=== PATIENT | male | born 2000 ===

== ENCOUNTER 2021-12-02 21:35 | Outpatient (REF) | payer BC, SELFPAY ==
[2021-12-05 12:32] LABS: Hemoglobin S Screen Negative (Negative)
== END 2021-12-02 21:36 | disposition home or self-care (01) ==
LOC: LBN 21:35
PROVIDERS: Visit Provider Physician Assistant Medical
DX: Z13.0 Encounter for screening for diseases of the blood and blood-forming organs and certain disorders involving the immune mechanism (principal)
CPT/HCPCS: 85660

== ENCOUNTER 2022-07-31 17:44 | Emergency (ER) | payer SELFPAY ==
--- NOTE | 2022-07-31 17:30 | RT.EKG_ITS ---
APPROVED REPORT Exam: Resting ECG Reason for Exam: syncope' Patient Location: E HR:83 bpm ECG Measurements Heart Rate 83 AXIS NV 174 P 7 QRSd 89 QRS 63 QT 345 T 32 QTc 404 Conclusion Sinus rhythm...normal P axis, V-rate 60- 99 ST elev, probable normal early repol pattern...ST elevation, age<55. Sinus. Normal axis. ? NV depression vs early repol. No STEMI. I have reviewed and interpreted ECG and agree with software generated interpretation.
[2022-07-31 17:44] VITALS: BP 124/41; PULSE 97; RESP 18; O2SAT 98
[2022-07-31 17:45] VITALS: RESP 18
[2022-07-31 17:53] VITALS: TEMP 37.3
--- NOTE | 2022-07-31 18:00 | DI.CT_ITS ---
Exam(s) CT THORACIC LUMBAR SPINE REC CT THORAX ABD/PEL CTA EXAM: CT THORAX ABD/PEL CTA and CT recons of the thoracic and lumbar spine CLINICAL HISTORY: syncopal episode and fall, r/o acute process. TECHNIQUE: Imaging Protocol: Axial CT angiography was performed with multi-slice acquisition and m ulti-planar and/or 3D reconstructions. CONTRAST MATERIAL: Intravenous: Omnipaque 350 contrast volume:100 mL Oral: No COMPARISON: CT CT THORACIC LUMBAR SPINE REC from 07/31/2022 FINDINGS: CHEST: Tracheobronchial tree: Patent where visualized. Pulmonary parenchyma: No consolidation or dominant measurable mass. No architectural distortion. Pulmonary Arteries: No evidence of filling defect to suggest pulmonary emboli. Mediastinum and Marleen: No dominant adenopathy or fluid collection. Visualized thyroid: Unremarkable. Pleura: No effusion or pneumothorax. Heart: The heart is not dilated. No coronary artery calcifications are seen. No pericardial effusion. Aorta: Thoracic aorta non-dilated. No evidence of dissection. Soft Tissues: Unremarkable. Bones: Within normal limits for the patient's age. CT thoracic spine recons: Unremarkable. No acute fracture or subluxation. ABDOMEN AND PELVIS: Abdomen: Celiac axis/mesenteric arteries: No evidence of occlusion or significant stenosis. Renal Arteries: No evidence of occlusion or significant stenosis. There is a single renal artery per fusing each kidney. Aorta: No evidence of occlusion or significant stenosis. No aneurysm or dissection. Pelvis: Iliac Arteries: No evidence of occlusion or significant stenosis. Common Femoral Arteries: No evidence of occlusion or significant stenosis. ABDOMEN: Liver: There is diffuse decreased attenuation of the liver consistent with fatty infiltration. No me asurable mass. Gallbladder and Biliary Tract: No radiodense calculus or dilation. Pancreas: Normal density, no abnormal calcifications or inflammatory process. Spleen: Normal. Adrenals: No masses seen. Kidneys: Normal size, contour and axis. No radiodense stones or obstructive uropathy. No masses seen. Bowel: No obstruction or bowel wall thickening. Appendix is unremarkable. Peritoneal Cavity: No ascites, collection or mesenteric inflammatory response. No free air. Lymph Nodes: Within normal limits. Bones: Within normal limits for the patient's age. Soft Tissues: Unremarkable. Lumbar spine CT recons: Unremarkable. No acute fracture or subluxation. PELVIS: Bladder: Symmetric distention, no gross wall thickening. Reproductive Organs: Unremarkable as visualized. Lymph Nodes: Within normal limits. Bones: Within normal limits for the patient's age. IMPRESSION: 1. Normal CT Angiogram of the chest, abdomen and pelvis. 2. No acute chest, abdominal or pelvic process. 3. No acute fracture or subluxation in the thoracic or lumbar spine. RADIATION DOSE DELIVERED: 947.24mGy.cm Total DLP DATA REPOSITORY: All CT scans at this facility are submitted to the National Radiology Data Registry (NRDR) Dose Index Registry (DIR) with the [employer] ([employer]). RADIATION OPTIMIZATION: All CT scans at this facility use at least one of these dose optimization te chniques: automated exposure control; mA and/or kV adjustment per patient size (includes targeted exa ms where dose is matched to clinical indication); or iterative reconstruction.
--- NOTE | 2022-07-31 18:00 | DI.CT_ITS ---
Exam(s) CT BRAIN NECK CTA EXAM: CT BRAIN NECK CTA CLINICAL HISTORY: occurred during lifting weights. TECHNIQUE: Imaging Protocol: Axial CT angiography was performed with multi-slice acquisition and mu lti-planar and/or 3D reconstructions. CONTRAST MATERIAL: Intravenous: Omnipaque 350 contrast volume:85 mL COMPARISON: No exams were available for comparison FINDINGS: CT Head W/O and W: Ventricles and Extra axial spaces: Normal in size and morphology for the patient's age. Hemorrhage: None. Cerebral parenchyma: Normal. Midline shift: None. Brainstem/Cerebellum: Normal. Calvarium: Normal. Visualized Paranasal sinuses/Mastoids: Clear. Soft Tissues: Unremarkable. Enhancement: Unremarkable. CTA Neck W: Common Carotid: Right: No dissection, occlusion or significant stenosis. Left: No dissection, occlusion or significant stenosis. External Carotid: Right: No occlusion or significant stenosis. Left: No occlusion or significant stenosis. Internal Carotid: Right: No dissection, occlusion or significant stenosis. Left: No dissection, occlusion or significant stenosis. Vertebral Artery: Right: No dissection, occlusion or significant stenosis. Left: No dissection, occlusion or significant stenosis. Lung Apices: Normal. Bones: Within normal limits for the patient's age. Soft Tissues: Normal. Thyroid gland: Unremarkable. CTA Brain W: Internal Carotid Arteries: Normal. Anterior Cerebral Arteries: Right: No aneurysm, occlusion or significant stenosis. Left: No aneurysm, occlusion or significant stenosis. Middle Cerebral Arteries: Right: No aneurysm, occlusion or significant stenosis. Left: No aneurysm, occlusion or significant stenosis. Posterior Cerebral Arteries: Right: No aneurysm, occlusion or significant stenosis. Left: No aneurysm, occlusion or significant stenosis. Vertebral Arteries: Right: No aneurysm, occlusion or significant stenosis. Left: No aneurysm, occlusion or significant stenosis. Basilar Artery: No aneurysm, occlusion or significant stenosis. IMPRESSION: 1. No large vessel occlusion or significant stenosis on the CT angiography of the head. 2. No acute intracranial process. 3. No occlusion or significant stenosis on the CT angiography of the neck. RADIATION DOSE DELIVERED: 2,074.32mGy.cm Total DLP DATA REPOSITORY: All CT scans at this facility are submitted to the National Radiology Data Registry (NRDR) Dose Index Registry (DIR) with the [employer] (ACR). RADIATION OPTIMIZATION: All CT scans at this facility use at least one of these dose optimization te chniques: automated exposure control; mA and/or kV adjustment per patient size (includes targeted exa ms where dose is matched to clinical indication); or iterative reconstruction.
--- NOTE | 2022-07-31 18:05 | ED.GENADUL_ITS ---
Discharge Plan Disposition Patient Disposition: Home Condition: Improving Discharge Details Clinical Impression: Episode of syncope Primary Care Provider: None,None ED Provider: Gena Palencia Discharge Instructions Instructions: Syncope (ED) Additional Instructions: Your blood tests and imaging today are reassuring and show no evidence of acute concerning findings. Your liver function tests were elevated and your CT scan did show evidence of fatty infiltration of your liver. Causes for these findings include high-fat diets, alcohol use and some medications. An order for an outpatient cardiac catheterization technologist has been placed. You will be contacted by the specialty clinic for scheduling of this test. You have been placed on care management list to arrange for an appointment with a primary care doctor to establish care and for reevaluation with plan for recheck of your liver enzymes and follow-up on results of your cardiac catheterization technologist. Be sure to drink plenty of water and get plenty of rest. Avoid taking any preworkout supplements as this could have contributed to your fainting episode today. Return immediately to the emergency department if you develop any worsening or new concerning symptoms. Discharge Orders Other Ambulatory Orders: Holter Monitor (Routine) Timeframe: 1 Week Facility: [facility] - Location: Respiratory Therapy Ordered By: Gena Palencia Discharge Data Discharge Date/Time-TO BE ENTERED AT DEPARTURE: 07/31/22 20:47 Discharge Physician: Gena Palencia Medical Decision Making 1800 -- 21-year-old male with no significant past medical history presents after having a syncopal episode while lifting weights with friends prior to arrival. He reported that he only slept 5 hours over the last 3 days and took a preworkout prior to lifting weights. Patient states he feels fine at this time and has no acute complaints. EKG notes a rate of 83, sinus, normal axis. EKG noted normal early repolarization pattern but appears more consistent with possibly NM depression with no acute ST elevation or depression. His vitals are within normal limits. No obvious evidence of trauma on exam including head, chest, abdomen or extremities. Moving all extremities without pain or deformity. Chest and abdomen nontender. No midline spinal tenderness. Secondary to report of syncopal episode while lifting weights, consider carotid dissection or acute aortic dissection. He denies any complaint of chest pain prior to or after syncopal episode so aortic dissection less likely. Discussed with patient at length that considering his lack of sleep, lack of p.o. intake and stimulant use with lifting weights, this could very likely be the source of his syncopal episode but will obtain screening labs, CT chest abdomen and pelvis and give fluid bolus and reassess. History and consent obtained through language line. 2030 -- Labs and imaging reviewed and unremarkable for acute findings. There is minimal to moderate elevation of his liver enzymes in addition to fatty liver noted on CT. No other acute findings noted. Patient reassessed and he has no acute complaints at this time. Patient's aunt at bedside and informed of results. Patient offered language line but declines and is agreeable with results and plan discussed with his aunt who relayed the information to him. Patient appears to understand and able to speak some Tajik. Advised to avoid any further preworkout supplement. An order for an outpatient Holter monitor has been placed. Advised on the importance of hydration and rest. Patient placed on care management's list to arrange for a follow-up appointment with a primary care doctor to establish care and for reevaluation. Usual and customary return precautions given prior to discharge. Medical Records Medical records reviewed: Yes I reviewed the patient's medical records. Imaging Data Radiologic Study: Radiologist's impression: CTA Chest With Contrast CTA Abdomen and Pelvis With Contrast Exam date and time: 07/31/2022 7:21 PM Age: 21 years old Clinical indication: Patient HX: S/P syncopal episode, fall, R/O dissection. Occurred during lifting weights TECHNIQUE: Imaging protocol: Computed tomographic angiography of the chest with contrast. Computed tomographic angiography of the abdomen and pelvis with contrast. 3D rendering (Not supervised by radiologist): MIP and/or 3D reconstructed images were created by the technologist. Radiation optimization: All CT scans at this facility use at least one of these dose optimization techniques: automated exposure control; mA and/or kV adjustment per patient size (includes targeted exams where dose is matched to clinical indication); or iterative reconstruction. Contrast material: OMNIPAQUE 350; Contrast volume: 100 ml; Contrast route: INTRAVENOUS (IV);? COMPARISON: CT BRAIN NECK CTA 07/31/2022 6:56 PM FINDINGS: VASCULATURE: Pulmonary arteries: Normal. No pulmonary emboli. Aorta: No aortic aneurysm. No aortic dissection. Celiac trunk and mesenteric arteries: No occlusion or significant stenosis. Renal arteries: No occlusion or significant stenosis. Right iliac arteries: No occlusion or significant stenosis. Left iliac arteries: No occlusion or significant stenosis. CHEST: Lungs: Unremarkable. No consolidation. No masses. Pleural spaces: Unremarkable. No pneumothorax. No pleural effusion. Heart: Unremarkable. No cardiomegaly. No pericardial effusion. ABDOMEN AND PELVIS: Liver: No mass. Diffuse fatty infiltration. Gallbladder and bile ducts: Unremarkable. No calcified stones. No ductal dilation. Pancreas: Unremarkable. No mass. No ductal dilation. Spleen: Unremarkable. No splenomegaly. Adrenal glands: Unremarkable. No mass. Kidneys and ureters: Unremarkable. No solid mass. No hydronephrosis. Stomach and bowel: Unremarkable. No obstruction. No mucosal thickening. Appendix: No evidence of appendicitis. Intraperitoneal space: Unremarkable. No free air. No significant fluid collection. Urinary bladder: Unremarkable. No mass. Reproductive: Unremarkable as visualized. Lymph nodes: Unremarkable. No enlarged lymph nodes. Bones/joints: Unremarkable. No acute fracture. Soft tissues: Unremarkable. IMPRESSION: 1. ? Unremarkable CTA chest, abdomen, and pelvis. 2. ? Diffuse fatty infiltration of the liver. Lab Data Lab results reviewed: Yes I reviewed the patient's lab results. Labs: Laboratory Tests Range/Units 07/31/22 07/31/22 17:50 17:50 WBC (4.4-10.8) 10^3/uL 6.49 RBC (4.36-5.78) 10^6/uL 5.65 Hgb (13.5-17.5) g/dL 14.5 Hct (40.0-50.0) % 44.7 MCV (80-95) fL 79 L MCH (27.0-33.0) pg 25.7 L MCHC (32.0-36.0) % 32.4 RDW (11.8-14.1) % 14.1 Plt Count (130-400) 10^3/uL 237 MPV (8.0-11.0) fL 10.0 Immature Gran % 0.3 Neutrophils % 57.7 Lymphocytes % 33.4 Monocytes % 6.3 Eosinophils % 1.8 Basophils % 0.5 Nucleated RBC % (0.0-0.3) % 0.0 Absolute Neutrophils (1.2-6.7) 10^3/uL 3.74 Absolute Lymphocytes (1.2-3.4) 10^3/uL 2.17 Absolute Monocytes (0.1-0.8) 10^3/uL 0.41 Absolute Eosinophils (0.0-0.7) 10^3/uL 0.12 Absolute Basophils (0.0-0.2) 10^3/uL 0.03 Sodium (136-145) mmol/L 139 Potassium (3.5-5.1) mmol/L 3.9 Chloride (98-107) mmol/L 105 Carbon Dioxide (21.0-32.0) mmol/L 28.2 Anion Gap (3-11) mmol/L 5.8 BUN (7-18) mg/dL 11 Creatinine (0.70-1.30) mg/dL 1.2 Est GFR (CKD-EPI 2020) (mL/min/1.73m2) 87.15 Glucose (74-106) mg/dL 104 Calcium (8.5-10.1) mg/dL 9.8 Magnesium (1.8-2.4) mg/dL 2.1 Total Bilirubin (0.2-1.0) mg/dL 0.4 AST (15-37) U/L 51 H ALT (16-63) U/L 122 H Alkaline Phosphatase (46-116) U/L 94 Troponin I (<or=60) ng/L < 50 Total Protein (6.4-8.2) g/dL 8.3 H Albumin (3.4-5.0) g/dL 4.4 Lipase (16-77) U/L 31 ECG Data Attestation: I personally reviewed and interpreted this ECG (s) as follows: Interpretation: rate of 83, sinus, normal axis, ?? NM depression, no acute ST elevation or depression. HPI General Mode of arrival: EMS . Date/Time Provider Initiated Documentation: 07/31/22 17:55 . Limitations to Documentation: language barrier . Information obtained by: patient . HPI Narrative: Patient is a 21-year-old Nepali-speaking male [facility] after EMS responded for a male who had a syncopal episode. Patient is Nepali- speaking and cannot provide history. EMS reported that patient was lifting weights with his friends when he had a syncopal episode. Friends had reported that the last approximately 15 minutes. It was also reported that he had taken a preworkout for the first time today prior to the syncopal episode. Discussion with patient through the language line revealed that patient reports that he had only drank juice and ate breakfast this morning before working out at the gym with his friends. Patient reports he was lifting weights when he noticed blurry vision and felt dizzy and states the next and he remembers is being in the ambulance. Friend at bedside reports that he looked over it patient and he appeared sleepy while sitting lifting weights and then passed out. Friend denies any fall or head injury and states he passed out while sitting and was lowered to the ground. He reports that patient appeared to be coughing with difficulty breathing at times. He reports that patient appeared to be unresponsive for approximately 10 to 15 minutes. Patient states he has only slept approximately 5 hours of the last 3 days. He denies any alcohol or drug use. He denies any [id number] prescriptions. He states he has never taken preworkout before. Patient denies any recent illness. Patient denies any chest pain or difficulty breathing prior to the syncopal episode. He denies any history of syncopal episodes. Patient states he has been at [place] for the past year. In regards to his medical history, he states he had asthma mainly as a child and currently does not take any medications for this. He denies any history of surgeries, prescription medication, tobacco, alcohol or drug use. He does endorse a history of allergy to penicillin which he states causes shortness of breath. General Stated Complaint: Dizzy/Sync SANDRA: 3 Review of Systems All systems reviewed & are unremarkable except as noted in HPI and below Constitutional Constitutional: Reports as per HPI, Denies chills and Denies fever(s) Eyes Eyes: Denies blurry vision ENT Ears, Nose, Mouth, and Throat: Denies dizziness, Denies sore throat and Denies throat swelling Cardiovascular Cardiovascular: Denies chest pain and Denies dyspnea Respiratory Respiratory: Denies cough and Denies dyspnea Gastrointestinal Gastrointestinal: Denies abdominal pain, Denies diarrhea and Denies vomiting Genitourinary Genitourinary: Denies hematuria and Denies dysuria Musculoskeletal Musculoskeletal: Denies back pain and Denies numbness Integumentary/Breasts Skin/Breast: Denies lesions and Denies rash Neurologic Neurologic: Denies dizziness, Denies localized weakness and Denies numbness Allergic/Immunologic Allergic/Immunologic: Denies throat swelling PFSH All Active Problems (Updated 07/31/22 @ 20:36 by Gena Palencia DO) Episode of syncope (Chronic) Medical History (Updated 07/31/22 @ 20:36 by Gena Plaencia DO) Asthma as a child Surgical History (Updated 07/31/22 @ 20:29 by Gena Palencia DO) No significant past surgical history Social History Smoking/Tobacco Use Status: Unknown Smoking risk assessment performed?: Yes Substance use type: unknown Exam Const General: cooperative, healthy appearing and no acute distress Orientation: alert, awake and oriented x3 HENMT Head: normal to inspection Ears: hearing grossly normal bilaterally, external ears normal and TM's normal bilaterally General nose exam: external nose normal Face and sinus: normal facial exam Throat: posterior oropharynx normal Eyes General: appearance normal, both eyes and all related structures Pupils: PERRL EOM: EOM intact bilaterally Neck Neck: normal visual inspection and No submandibular swelling Lymphatic: no lymphadenopathy noted Chest Chest: normal inspection of the chest, normal palpation of entire chest wall and no tenderness Resp Effort & Inspection: normal respiratory effort and able to speak in complete sentences Auscultation: clear to auscultation bilaterally Cardio Rate: regular rate Rhythm: regular rhythm GI Inspection: normal to inspection and no abdominal wall ecchymosis Palpation: soft, not firm, not rigid and nontender Auscultation: normal bowel sounds Back/Spine/Pelvis Cervical Spine: No cervical spinal tenderness Thoracic/Lumbar Spine: thoracic and lumbar spine normal to inspection, No thoracic spinal tenderness and No lumbar spinal tenderness Pelvis: no pain with anterior-posterior compression Skin General skin exam: no rashes or lesions noted Neuro General: patient alert, patient awake and patient oriented x3 Cognition: normal cognition Speech: speech normal Motor: muscle tone normal throughout Sensory Exam: no sensory deficits noted Extrem General: normal to inspection, full ROM, capillary refill normal, no calf tenderness bilaterally and no edema Other: Full range of motion of bilateral upper and lower extremities without pain with range of motion, tenderness or deformity. Psych Appearance: grossly normal Mental Status: mental status grossly normal Speech and Movement: speech and movement normal Affect: normal affect Course Vital Signs Vital signs: Vital Signs Pulse 97 H 07/31/22 17:44 Respiratory Rate 18 07/31/22 17:44 Blood Pressure 124/41 L 07/31/22 17:44 Pulse Oximetry 98 07/31/22 17:44 Temperature 99.2 F 07/31/22 17:53 Temperature Source Oral 07/31/22 17:53 Pulse 97 H 07/31/22 17:44 Respiratory Rate 18 07/31/22 17:45 Respiratory Effort Normal, Non-Labored 07/31/22 17:45 Respiratory Depth Normal 07/31/22 17:45 Respiratory Pattern Normal 07/31/22 17:45 Blood Pressure 124/41 L 07/31/22 17:44 Pulse Oximetry 98 07/31/22 17:44 Oxygen Delivery Method Room Air 07/31/22 17:44 Oxygen Flow Rate 0 07/31/22 17:44
[2022-07-31 18:08] LABS: Abs Immature Grans 0.02 10^3/uL (0.0-0.06); Absolute Basophil Count 0.03 10^3/uL (0.0-0.2); Absolute Eosinophil Count 0.12 10^3/uL (0.0-0.7); Absolute Lymphocyte Count 2.17 10^3/uL (1.2-3.4); Absolute Monocyte Count 0.41 10^3/uL (0.1-0.8); Absolute Neutrophil Count 3.74 10^3/uL (1.2-6.7); Basophils % 0.5; Eosinophils % 1.8; HCT 44.7 % (40.0-50.0); HGB 14.5 g/dL (13.5-17.5); Immature Grans % 0.3; Lymphocytes % 33.4; MCH 25.7 pg (27.0-33.0); MCHC 32.4 % (32.0-36.0); MCV 79 fL (80-95); Monocytes % 6.3; Neutrophils % 57.7; Platelet Count 237 10^3/uL (130-400); RBC 5.65 10^6/uL (4.36-5.78); RDW 14.1 % (11.8-14.1); RDW-SD 40.2 fL; WBC 6.49 10^3/uL (4.4-10.8)
[2022-07-31] MEDS: Normal Saline 1,000 ML 1000 ML IV (18:09)
[2022-07-31 18:26] LABS: ALT 122 U/L (16-63); AST 51 U/L (15-37); Albumin 4.4 g/dL (3.4-5.0); Alkaline Phosphatase 94 U/L (46-116); Anion Gap 5.8 mmol/L (3-11); BUN 11 mg/dL (7-18); Bilirubin, Total 0.4 mg/dL (0.2-1.0); CO2 28.2 mmol/L (21.0-32.0); CREATININE 1.2 mg/dL (0.70-1.30); Calcium 9.8 mg/dL (8.5-10.1); Chloride 105 mmol/L (98-107); Estimated GFR 87.15 (mL/min/1.73m2); Glucose 104 mg/dL (74-106); Lipase 31 U/L (16-77); Magnesium 2.1 mg/dL (1.8-2.4); Potassium 3.9 mmol/L (3.5-5.1); Sodium 139 mmol/L (136-145); Total Protein 8.3 g/dL (6.4-8.2); Troponin I < 50 ng/L (<or=60)
[2022-07-31] MEDS: Normal Saline Flush 10 ML SYR IVP (18:57)
[2022-07-31] MEDS: Normal Saline - Diluent 50 ML VIAL IJ (18:57)
[2022-07-31] MEDS: Omnipaque 350 MG/ML 100 ML BTL 200 ML IJ (18:58)
--- NOTE | 2022-07-31 19:29 | DI.VRAD_ITS ---
PROCEDURE INFORMATION: Exam: CTA Head Without And With Contrast, Arteriography Exam date and time: 07/31/2022 6:56 PM Age: 21 years old Clinical indication: Stroke-like symptoms; Syncope/collapse; Additional info: S/P syncopal episode, R/O dissection. Occurred during lifting weights TECHNIQUE: Imaging protocol: Computed tomographic angiography of the head without and with contrast. Exam focused on the arteries. 3D rendering (Not supervised by radiologist): MIP and/or 3D reconstructed images were created by the technologist. Contrast material: OMNIPAQUE 350; Contrast volume: 85 ml; Contrast route: INTRAVENOUS (IV); Other technique: STROKE PROTOCOL was implemented. COMPARISON: No relevant prior studies available. FINDINGS: ANTERIOR CIRCULATION: Right internal carotid artery: Intracranial segment is patent with no significant stenosis or occlusion. No aneurysm. Right middle cerebral artery: No occlusion or significant stenosis. No aneurysm. Right anterior cerebral artery: No occlusion or significant stenosis. No aneurysm. Left internal carotid artery: Intracranial segment is patent with no significant stenosis. No aneurysm. Left middle cerebral artery: No occlusion or significant stenosis. No aneurysm. Left anterior cerebral artery: No occlusion or significant stenosis. No aneurysm. POSTERIOR CIRCULATION: Right vertebral artery: No occlusion or significant stenosis. No aneurysm. Left vertebral artery: No occlusion or significant stenosis. No aneurysm. Basilar artery: No occlusion or significant stenosis. No aneurysm. Right posterior cerebral artery: No occlusion or significant stenosis. No aneurysm. Left posterior cerebral artery: No occlusion or significant stenosis. No aneurysm. HEAD: Brain: Normal. No hemorrhage. Unremarkable white matter. No mass effect. Cerebral ventricles: Normal. No ventriculomegaly. Bones/joints: Unremarkable. No acute fracture. Paranasal sinuses: Mild mucosal thickening of the ethmoid air cells. No fluid levels. Mastoid air cells: Visualized mastoids are normal. No mastoid effusion. Soft tissues: Unremarkable. IMPRESSION: No large vessel occlusion. Unremarkable CT head. ASSESSMENT: ASPECTS ([place] Stroke Program Early CT Score) is 10. PROCEDURE INFORMATION: Exam: CTA Neck With Contrast Exam date and time: 07/31/2022 6:56 PM Age: 21 years old Clinical indication: Stroke-like symptoms; Syncope/collapse; Additional info: S/P syncopal episode, R/O dissection. Occurred during lifting weights TECHNIQUE: Imaging protocol: Computed tomographic angiography of the neck with contrast. 3D rendering (Not supervised by radiologist): MIP and/or 3D reconstructed images were created by the technologist. Radiation optimization: All CT scans at this facility use at least one of these dose optimization techniques: automated exposure control; mA and/or kV adjustment per patient size (includes targeted exams where dose is matched to clinical indication); or iterative reconstruction. Contrast material: OMNIPAQUE 350; Contrast volume: 85 ml; Contrast route: INTRAVENOUS (IV); COMPARISON: No relevant prior studies available. FINDINGS: Right common carotid artery: No stenosis. No dissection or occlusion. Right internal carotid artery: No stenosis of the extracranial segment (0% by NASCET criteria). No dissection or occlusion. Right external carotid artery: No occlusion or stenosis of the origin. Left common carotid artery: No stenosis. No dissection or occlusion. Left internal carotid artery: No stenosis of the extracranial segment (0% by NASCET criteria). No dissection or occlusion. Left external carotid artery: No occlusion or stenosis of the origin. Right vertebral artery: No stenosis. No dissection or occlusion. Left vertebral artery: No stenosis. No dissection or occlusion. Soft tissues: Normal. No significant soft tissue swelling. Bones/joints: No acute fracture. IMPRESSION: No stenosis or occlusion. No evidence of dissection. REFERENCES: NASCET CRITERIA. The degree of stenosis in the cervical segment of the internal carotid artery is based on NASCET criteria. Normal is no stenosis. Mild is less than 50% stenosis. Moderate is 50-69% stenosis. Severe is 70% to 99% stenosis. Total occlusion is no detectable patent lumen. Dictated and Authenticated by: Antony Grace MD. Ordering:EVANGELISTA Avery MD
--- OUTSIDE RECORDS SUMMARY | 2022-07-31 19:50 | XMS_ITS | Continuity of Care Document ---
Author Name [facility] Address [address] [place] [address] Organization [facility] Address [address] [place] [address] Care Team Providers Care Iron Piler Name Role Phone PCP, of Choice Primary Care Physician Unavailab le Allergies, Adverse Reactions, Alerts Allergen Type Severity Reaction Last Updated Verified Status Penicillins Allergy rash September 08, 2017 Y Active Medications No known medications. Problem List Inactive/Resolved Problems Medical Problem Onset Date Status Acute mesenteric adenitis Inacti ve Undifferentiated abdominal pain Inactive Procedures Procedure Date Status CT Abd Pel w/o Contrast September 08, 2017 complete d Relevant Diagnostic Tests and/or Laboratory Data Laboratory Results Test Date/Time Result Interp. Ref. Range Result Co mment White Blood Count September 08, 2017 11:42pm 7.45 1000/mm3 4.8-10.8 Red Blood Count September 08, 2017 11:42pm 5.76 M/mm3 4.70-6.00 Hemoglobin September 08, 2017 11:42pm 14.8 g/dL 14.0-18.0 Hematocrit September 08, 2017 11:42pm 44.5 % 42-52 Mean Corpuscular Volume September 08, 2017 11:42pm 77.3 fL Low 80.0-94.0 Mean Corpuscular Hemoglobin September 08, 2017 11:42pm 25.7 pg Low 27-31 Mean Corpuscular Hemoglobin Concent September 08, 2017 11:42pm 33.3 g/dL 33-37 Red Cell Distribution Width September 08, 2017 11:42pm 14.4 % 11.5-14.5 Platelet Count September 08, 2017 11:42pm 212 1000/mm3 140-440 Mean Platelet Volume September 08, 2017 11:42pm 10.5 fL High 7.4-10.4 Neutrophils (%) (Auto) September 08, 2017 11:42pm 49.2 % 40.0-72.0 Lymphocytes (%) (Auto) September 08, 2017 11:42pm 42.3 % 17-45 Monocytes (%) (Auto) September 08, 2017 11:42pm 6.8 % 3-11 Eosinophils (%) (Auto) September 08, 2017 11:42pm 1.3 % 0-3 Basophils (%) (Auto) September 08, 2017 11:42pm 0.4 % 0-1 Neutrophils # (Auto) September 08, 2017 11:42pm 3.66 1000/mm3 1.4-6.5 Lymphocytes # (Auto) September 08, 2017 11:42pm 3.15 1000/mm3 1.2-3.4 Monocytes # (Auto) September 08, 2017 11:42pm 0.51 1000/mm3 0.0-0.8 Eosinophils # (Auto) September 08, 2017 11:42pm 0.10 1000/mm3 0.0-0.7 Basophils # (Auto) September 08, 2017 11:42pm 0.03 1000/mm3 0.0-0.1 Differential Method September 08, 2017 11:42pm Automated Sodium Level September 08, 2017 11:42pm 139 mmol/L 137-145 Potassium Level September 08, 2017 11:42pm 3.5 mmol/L Low 3.6-5.0 Chloride Level September 08, 2017 11:42pm 104 mmol/L 98-107 Carbon Dioxide Level September 08, 2017 11:42pm 27 mmol/L 22-30 Anion Gap September 08, 2017 11:42pm 8 7-16 Blood Urea Nitrogen September 08, 2017 11:42pm 14 mg/dL 8-26 Creatinine September 08, 2017 11:42pm 0.80 mg/dL 0.66-1.25 Glomerular Filtration Rate Calc September 08, 2017 11:42pm > 60 mL/min 60.0- Glucose Level September 08, 2017 11:42pm 81 mg/dL 70-100 Calcium Level September 08, 2017 11:42pm 10.0 mg/dL 8.4-10.2 Advance Directives Advance Directive Response Recorded Date/ Time Do we have a copy on file here at [facility]? No September 08, 2017 11:17pm Does patient have an Advanced Directive? No September 08, 2017 11:17pm Pt has a Living Will? No September 08 11:17pm Pt has a Power of Capacitor Repairer? No September 08, 2017 11:17pm Chief Complaint and Reason for Visit Encounter Admit Date Chief Complaint Reason for Monique guzmán Departed Emergency September 08, 2017 10:37pm ST[facility]ACH [facility] Hospital Discharge Instructions Additional Discharge Instructions Your w cammy blood cell count was normal. CAT scan of your abdomen showed multiple enlarged lymph nodes in the mesenteric fat consistent with mesenteric adenitis. This is most likely a viral illness and may be an early enteritis or (stomach bug). The clear liquids until the nausea and vomiting has resolved and then advance to soups and toast rather than jumping ahead to full meals. It is important that he stay well hydrated so continue to drink fluids. Sent home with 4 tablets of Percocet you can take 1 every 6 hours as needed for severe pain otherwise take ibuprofen or Tylenol. Return to the emergency department for worsening pain, inability to keep down fluids, fever, or any concerns. Instruction/Education Provided Mesenteri c Lymphadenitis (DC) Encounters Encounter Facility Location Admit/Visit Date Discharge/Departure Date Attending Provider Departed Emergency [facility] Emergency Department September 08, 2017 10:37pm September 09, 2017 1:37am Functional Status No known functional status. Immunizations No known immunizations. Payers Payer Name Policy Type Covered Constitution Party Covered Constitution Party Id Relationship Subscriber Subscriber Id SELF PAY Personal Plan of Care Instructions Mesenteric Lymphadenitis (DC ) Social History Query Response Start Date Stop Date Smoking Status Never smoker Vital Signs Vital Reading Result Reference Range Collection Date/Time Height n/a Weight 63.049 kg September 08, 2017 10 :40pm Temperature 98.3 F 97.6 F-99.6 F September 08, 2017 1 0:40pm Pulse 64 BPM 56-106 September 09, 2017 12 :21am Respiration 16 RPM 16-24 September 09, 2017 12 :21am Pulse Oximetry 98 % 95-100 September 09, 2017 12:21am Blood Pressure Systolic 132 101-135 September 09, 2017 12:21am Blood Pressure Diastolic 77 59-85 Gian 2017 12:21am Body Mass Index n/a
--- OUTSIDE RECORDS SUMMARY | 2022-07-31 19:50 | XMS_ITS | Continuity of Care Document ---
Author Name [facility] Address [address] [place] [address] [facility] Address [address] [place] [address] Care Team Providers Care Business Systems Architect Name Role Phone PCP, of Choice Primary Care Physician Unavailab le Allergies, Adverse Reactions, Alerts Allergen Type Severity Reaction Last Updated Verified Status Penicillins Allergy rash August 09, 2018 Y Active Medications No known medications. Problem List Active Problems Medical Problem Onset Date Status Gastritis Active Contusion of periorbital region, left Active Inactive/Resolved Problems Medical Problem Onset Date Status Abdominal pain, RLQ Inactive Acute mesenteric adenitis Inacti ve Enteritis Inactive Undifferentiated abdominal pain Inactive Procedures Procedure Date Status CT Abd Pel w/ Contrast January 10, 2019 completed Relevant Diagnostic Tests and/or Laboratory Data Laboratory Results Test Date/Time Result Interp. Ref. Range Result Comment White Blood Count January 10, 2019 5:20pm 7.98 1000/mm3 4.8-10.8 Red Blood Count January 10, 2019 5:20pm 5.77 M/mm3 4.70-6.00 Hemoglobin January 10, 2019 5:20pm 14.6 g/dL 14.0-18.0 Hematocrit January 10, 2019 5:20pm 45.2 % 42-52 Mean Corpuscular Volume January 10, 2019 5:20pm 78.3 fL Low 80.0-94.0 Mean Corpuscular Hemoglobin January 10, 2019 5:20pm 25.3 pg Low 27-31 Mean Corpuscular Hemoglobin Concent January 10, 2019 5:20pm 32.3 g/dL Low 33-37 Red Cell Distribution Width January 10, 2019 5:20pm 13.4 % 11.5-14.5 Platelet Count January 10, 2019 5:20pm 208 1000/mm3 140-440 Mean Platelet Volume January 10, 2019 5:20pm 10.4 fL 7.4-10.4 Neutrophils (%) (Auto) January 10, 2019 5:20pm 58.0 % 40.0-72.0 Lymphocytes (%) (Auto) January 10, 2019 5:20pm 28.6 % 17-45 Monocytes (%) (Auto) January 10, 2019 5:20pm 9.1 % 3-11 Eosinophils (%) (Auto) January 10, 2019 5:20pm 3.5 % High 0-3 Basophils (%) (Auto) January 10, 2019 5:20pm 0.4 % 0-1 Immature Granulocyte % (Auto) January 10, 2019 5:20pm 0.4 % 0-1 Neutrophils # (Auto) January 10, 2019 5:20pm 4.63 1000/mm3 1.4-6.5 Lymphocytes # (Auto) January 10, 2019 5:20pm 2.28 1000/mm3 1.2-3.4 Monocytes # (Auto) January 10, 2019 5:20pm 0.73 1000/mm3 0.0-0.8 Eosinophils # (Auto) January 10, 2019 5:20pm 0.28 1000/mm3 0.0-0.7 Basophils # (Auto) January 10, 2019 5:20pm 0.03 1000/mm3 0.0-0.1 Absolute Immature Granulocyte (auto January 10, 2019 5:20pm 0.0 0-1 Differential Method January 10, 2019 5:20pm Automated Sodium Level January 10, 2019 5:20pm 142 mmol/L 137-145 Potassium Level January 10, 2019 5:20pm 4.0 mmol/L 3.6-5.0 Chloride Level January 10, 2019 5:20pm 101 mmol/L 98-107 Carbon Dioxide Level January 10, 2019 5:20pm 28 mmol/L 22-30 Anion Gap January 10, 2019 5:20pm 13 7-16 Blood Urea Nitrogen January 10, 2019 5:20pm 15 mg/dL 8-26 Creatinine January 10, 2019 5:20pm 0.92 mg/dL 0.66-1.25 Glomerular Filtration Rate Calc January 10, 2019 5:20pm > 60 mL/min 60.0- Glucose Level January 10, 2019 5:20pm 101 mg/dL High 70-100 Calcium Level January 10, 2019 5:20pm 9.7 mg/dL 8.4-10.2 Calcium Adjusted for Albumin January 10, 2019 5:20pm 8.8 mg/dL 8.4-10.2 Total Bilirubin January 10, 2019 5:20pm 0.5 mg/dL 0.2-1.3 Aspartate Amino Transf (AST/SGOT) January 10, 2019 5:20pm 32 U/L 17-59 Alanine Aminotransferase (ALT/SGPT) January 10, 2019 5:20pm 49 U/L 21-72 Total Protein January 10, 2019 5:20pm 8.9 g/dL High 6.3-8.2 Albumin January 10, 2019 5:20pm 5.4 g/dL High 3.5-5.0 Alkaline Phosphatase January 10, 2019 5:20pm 76 U/L 38-126 Lipase January 10, 2019 5:20pm 71 U/L 23-300 Hospital Discharge Instructions Additional Discharge Instructions [place] omentamos, le animo a que contin???e enfoc???ndose en edwige excelente hidrataci???n, especialmente mientras tiene diarrea. Conc???ntrese en la hidrataci???n con agua, khang moise u otras bebidas electrol???jaleesa diluidas inga Gatorade o Powerade. Puede usar anti???cidos de venta kendal inga Tums, Zantac para cualquier s???ntoma continuo de gastritis. Si tiene fiebre, empeoramiento del dolor abdominal, n???useas o v???mitos persistentes o si la diarrea contin???a zeina m???s de 2 a 3 d???as, le animo a que regrese a la [place] de emergencias para edwige evaluaci???n repetida, edwige posible imagenolog???a y / o hidrataci???n intravenosa. Le animo a que se concentre en edwige dieta blanda, inga panes, sopa, arroz simple o cosas sin edwige gran cantidad de especias, ???cidos o c???tricos que podr???an irritar a???n m???s el revestimiento del est???travis en el intestino. As we discussed, I encourage you to continue focusing on excellent hydration, especially while you are experiencing diarrhea. Please focus on hydration with water, khang moise or other watered-down electrolyte drinks such as Gatorade or Powerade. You may use vjia-ggq-pxsilya antacids such as Tums, Zantac for any continued gastritis symptoms. If you develop a fever, worsening abdominal pain, persistent nausea or vomiting, or if your diarrhea continues for more than 2 to 3 days I would encourage you to return to the ER for repeat evaluation, possible imaging and/or IV hydration. I would encourage you to focus on a bland diet such as breads, soup, plain rice or things without a great deal of spice, acid or citrus that could further irritate the lining of your stomach in bowel. Instruction/Education Provided Gastritis (DC) COVID 19 General Instructions- decrease the [place] of [place] [place] Encounters Encounter Facility Location Admit/Visit Date Discharge/Departure Date Attending Provider Departed Emergency [facility] December 26, 2019 3:29pm December 26, 2019 5:16pm Departed Physician/Pr ovider [place] [facility] [place] [facility] September 29, 2019 10:20am September 29, 2019 11:09am Chelsey Lima Departed Emergency [facility] Emergency Department January 10, 2019 4:54pm January 10, 2019 8:14pm Functional Status Query Response Date Recorded Comment Living Situation With Family December 26, 2019 4:58p m Immunizations No known immunizations. Payers Payer Name Policy Type Covered Green Party Covered Green Party Id Relationship Subscriber Subscriber Id FINANCIAL ASSISTANCE Personal SELF PAY Personal Plan of Care Instructions Gastritis (DC) COVID 19 General Instructions- decrease the spread of coronavirus ([facility]) Social History Query Response Date Recorded Comment Alcohol Use No December 26, 2019 4:58pm Smoking Status Never smoker December 26, 2019 4:58pm Substance/Street Drug Use No December 25 020 4:58pm substance use type does not use December 26, 2019 4:5 8pm Query Response Start Date Stop Date Smoking Status Never smoker Vital Signs Vital Reading Result Reference Range Collection Date/Time Height 5 ft 8 in December 25 4:26pm Weight 66.224 kg December 25 4:26pm Temperature 99.6 F 97.6 F-99.6 F December 26, 2019 4:26pm Pulse 71 BPM 60-100 December 25 4:26pm Respiration 20 RPM -December 25 4:26pm Pulse Oximetry 98 % 95-100 December 26, 2019 4:26pm Blood Pressure Systolic 128 100-140 Sept 2019 4:26pm Blood Pressure Diastolic 64 50-85 [facility] 4:26pm Body Mass Index 22.1 December 4:26pm
--- OUTSIDE RECORDS SUMMARY | 2022-07-31 19:50 | XMS_ITS | Continuity of Care Document ---
Author Name [facility] Address [address] [place] [id number] Organization [facility] Address [address] [place] [address] Care Team Providers Care Manager Engine Name Role Phone PCP, of Choice Primary Care Physician Chelsey Rothman Attending Physician [phone] Allergies, Adverse Reactions, Alerts Allergen Type Severity Reaction Last Updated Verified Status Penicillins Allergy rash February 03, 2020 Y Act kimberley Medications No known medications. Problem List Active Problems Medical Problem Onset Date Status Unspecified sprain of right lesser toe(s), seque la Active Hip sprain Active Fracture of toe of right foot Ac tive Contusion of periorbital region, left Active Right ankle sprain Active Inactive/Resolved Problems Medical Problem Onset Date Status Abdominal pain, RLQ Inactive Contusion of hip Inactive Acute mesenteric adenitis Inacti ve Enteritis Inactive Gastritis Inactive Undifferentiated abdominal pain Inactive Right ankle sprain Inactive Procedures Procedure Date Status Toe(s) 2 vw Min RT February 03, 2020 completed Hip 2 vw Min RT w/ AP Pelvis January 17, 2020 co mpleted Ankle 3 vw Min RT January 17, 2020 completed Foot 3 vw Min RT January 17, 2020 completed Relevant Diagnostic Tests and/or Laboratory Data No known relevant diagnostic tests, laboratory data, and/or discharge summary. Hospital Discharge Instructions No known hospital discharge instructions. Encounters Encounter Facility Location Admit/Visit Date Discharge/Departure Date Attending Provider Departed Clinical [facility] DI Walk [facility] February 03, 2020 2:08pm February 03, 2020 2:09pm Chelsey Lima Departed Physician/Pr ovider Office Visit [facility] February 03, 2020 1:50pm February 03, 2020 2:51pm Chelsey Lima Departed Physician/Pr ovider Office Visit [facility] January 29, 2020 9:45am January 29, 2020 10:30am Chelsey Lima Departed Physician/Pr ovider Office [place] [facility] [place] [facility] January 22, 2020 1:54pm January 22, 2020 3:40pm Chelsey Lima Departed Emergency [facility] January 17, 2020 1:49pm January 17, 2020 4:35pm Departed Emergency [facility] December 26, 2019 3:29pm December 26, 2019 5:16pm Departed Physician/Pr ovider Office Visit [facility] [place] [facility] September 29, 2019 10:20am September 29, 2019 11:09am Chelsey Lima Functional Status Query Response Date Recorded Comment Living Situation With Family January 17, 2020 3:22pm Immunizations No known immunizations. Plan of Care No Known Plan of Care Information Social History Query Response Date Recorded Comment Alcohol Use No January 17, 2020 3:22pm Smoking Status Never smoker February 03, 2020 2:02pm Substance/Street Drug Use No January 16 0 3:22pm substance use type does not use January 17, 2020 3:22p m Query Response Start Date Stop Date Smoking Status Never smoker Vital Signs Vital Reading Result Reference Range Collection Date/Time Height 5 ft 5 in February 02 0 1:57pm Weight 66 kg February 02 0 1:57pm Temperature 99.1 F 97.6 F-99.6 F January 16 20 2:10pm Pulse 62 BPM 60-100 February 02 0 1:57pm Respiration 16 RPM 12-24 February 02 0 1:57pm Pulse Oximetry 98 % 95-100 January 16 020 2:10pm Blood Pressure Systolic 114 100-140 Octo 2019 1:57pm Blood Pressure Diastolic 88 50-85 Oct augusto 2019 1:57pm Body Mass Index 24.2 February 03, 2020 1:57pm
--- OUTSIDE RECORDS SUMMARY | 2022-07-31 19:50 | XMS_ITS | Continuity of Care Document ---
Author Name [facility] Address [address] [place] [id number] Organization [facility] Address [address] [place] [address] Care Team Providers Care Ice Guard Tester Name Role Phone PCP, of Choice Primary Care Physician Unavailab le Allergies, Adverse Reactions, Alerts Allergen Type Severity Reaction Last Updated Verified Status Penicillins Allergy rash August 09, 2018 Y Active Medications No known medications. Problem List Active Problems Medical Problem Onset Date Status Abdominal pain, RLQ Active Enteritis Active Contusion of periorbital region, left Active [...] January 10, 2019 5:20pm 71 U/L 23-300 Chief Complaint and Reason for Visit Encounter Admit Date Chief Complaint Reason for V isit Departed Emergency January 10, 2019 4:54pm RIGHT SIDE P [facility] Hospital Discharge Instructions Additional Discharge Instructions return here for any fever, vomiting, worsening pain or concerns. I have also given your referral to a local surgeon if this tends to recur you may need a colonoscopy to rule out Crohn's disease. You can take Tylenol or ibuprofen as needed for discomfort and be sure to drink plenty of fluids to stay well-hydrated. I have also given you a list of local primary care providers with whom you can establish care for ongoing healthcare needs and follow-up. Instruction/Education Provided Acute Abd omen (Belly Pain), Adult (DC) Encounters Encounter Facility Location Admit/Visit Date Discharge/Departure Date Attending Provider Departed Emergency [facility] Emergency Department January 10, 2019 4:54pm January 10, 2019 8:14pm Departed Physician/Pr ovider Office [place] [facility] [place] [facility] August 09, 2018 12:35pm August 09, 2018 1:45pm Li Sanchez Departed Physician/Pr ovider Office Visit [facility] August 08, 2018 12:55pm August 08, 2018 4:00pm Chelsey Lima Functional Status Query Response Date Recorded Comment Living Situation Home January 10, 2019 8:11pm Immunizations No known immunizations. Payers Payer Name Policy Type Covered Alliance Party Covered Alliance Party Id Relationship Subscriber Subscriber Id FINANCIAL ASSISTANCE Personal SELF PAY Personal Plan of Care Instructions Acute Abdomen (Belly Pain), Adult (DC) Social History No known social history. Vital Signs Vital Reading Result Reference Range Collection Date/Time Height 5 ft 6 in August 09, 2018 1:1 8pm Weight 66.678 kg January 10, 2019 4:56pm Temperature 98.4 F 97.6 F-99.6 F January 10 9 4:56pm Pulse 118 BPM 60-100 January 10, 2019 4:56pm Respiration 20 RPM 12-24 January 10, 2019 4:56pm Pulse Oximetry 98 % 95-100 January 10 4:56pm Blood Pressure Systolic 141 100-140 Octo [place] 2018 4:56pm Blood Pressure Diastolic 87 50-85 Oct augusto 2018 4:56pm Body Mass Index n/a
--- OUTSIDE RECORDS SUMMARY | 2022-07-31 19:50 | XMS_ITS | Continuity of Care Document ---
Author Name [facility] Address [address] [place] [address] Organization [facility] Address [address] [place] [address] Care Team Providers Care Field Service Engineer Name Role Phone PCP, of Choice Primary Care Physician Unavailab le Allergies, Adverse Reactions, Alerts Allergen Type Severity Reaction Last Updated Verified Status Penicillins Allergy rash January 17, 2020 Y Act kimberley Medications No known medications. Problem List Active Problems Medical Problem Onset Date Status Contusion of hip Active Fracture of toe of right foot Ac tive Contusion of periorbital region, left Active Right ankle sprain Active Inactive/Resolved Problems Medical Problem Onset Date Status Abdominal pain, RLQ Inactive Acute mesenteric adenitis Inacti ve Enteritis Inactive Gastritis Inactive Undifferentiated abdominal pain Inactive Procedures Procedure Date Status Hip 2 vw Min RT w/ AP Pelvis January 17, 2020 co mpleted Ankle 3 vw Min RT January 17, 2020 completed Foot 3 vw Min RT January 17, 2020 completed Relevant Diagnostic Tests and/or Laboratory Data No known relevant diagnostic tests, laboratory data, and/or discharge summary. Hospital Discharge Instructions Additional Discharge Instructions your h ip and ankle xrays are negative for fractures. You likely have a contusion (bruise) of the hip, and a sprain of the ankle. There is a questionable fracture in your 5th (pinky) toe. Continue ruth-tapping the toes together until tenderness resolves. Wearing supportive hard-soled shoes, like your current shoes, can also help. Use the crutches to ambulate while it is painful to walk. Applying cool compresses to the hip, 15-20 minutes at a time every few hours can help with pain and any swelling/bruising that might develop. For pain you can take ibuprofen 600-800mg every 6-8 hours with food. You can alternate with tylenol, 1-2 extra strength tablets every 6 hours, if additional pain relief is needed. Follow up with Occupational Health on Sunday - call to schedule an appointment (see phone number below). bhaskar radiograf???as de cadera y tobillo son negativas para fracturas. Es probable que tenga edwige contusi???n (hematoma) en la cadera y un esguince de tobillo. Hay edwige fractura cuestionable en el josephine dedo (me???ique). Contin???e golpeando con los dedos de los pies juntos hasta que la sensibilidad desaparezca. Usar zapatos de suela dura que le brinden apoyo, inga bhasakr zapatos actuales, tambi???n puede ayudar. Use las muletas para deambular mientras le duele caminar. La aplicaci???n de compresas fr???as en la cadera, de 15 a 20 minutos a la vez, cada pocas horas, puede ayudar con el dolor y cualquier hinchaz???n o hematoma que pueda aparecer. Para el dolor, puede amber ibuprofeno 600-800 mg cada 6-8 horas con alimentos. Puede alternar con tylenol, 1-2 tabletas extra hammad cada 6 horas, si necesita un alivio adicional del dolor. Rosaura un seguimiento con Kate Ocupacional el : llame para programar edwige fritz (consulte el n???brown de tel???fono a continuaci???n). Instruction/Education Provided COVID 19 General Instructions- decrease the spread of coronavirus ([facility]) Encounters Encounter Facility Location Admit/Visit Date Discharge/Departure Date Attending Provider Departed Emergency [facility] January 17, 2020 1:49pm January 17, 2020 4:35pm Departed Emergency [facility] December 26, 2019 3:29pm December 26, 2019 5:16pm Departed Physician/Pr ovider Office Visit [facility] Munoz September 29, 2019 10:20am September 29, 2019 11:09am Chelsey Lima Functional Status Query Response Date Recorded Comment Living Situation With Family January 17, 2020 3:22pm Immunizations No known immunizations. Payers Payer Name Policy Type Covered Green Party Covered Green Party Id Relationship Subscriber Subscriber Id FINANCIAL ASSISTANCE Personal SELF PAY Personal Plan of Care Instructions COVID 19 General Instruction s- decrease the spread of coronavirus ([facility]) Social History Query Response Date Recorded Comment Alcohol Use No January 17, 2020 3:22pm Smoking Status Never smoker January 17, 2020 3:22pm Substance/Street Drug Use No January 16 0 3:22pm substance use type does not use January 17, 2020 3:22p m Query Response Start Date Stop Date Smoking Status Never smoker Vital Signs Vital Reading Result Reference Range Collection Date/Time Height 5 ft 4.96 in January 16 0 2:10pm Weight 66.678 kg January 16 0 2:10pm Temperature 99.1 F 97.6 F-99.6 F January 16 20 2:10pm Pulse 73 BPM 60-100 January 16 0 2:10pm Respiration 16 RPM 12-24 January 16 0 2:10pm Pulse Oximetry 98 % 95-100 January 16 020 2:10pm Blood Pressure Systolic 122 100-140 Octo 2019 2:10pm Blood Pressure Diastolic 72 50-85 Oct augusto 2019 2:10pm Body Mass Index 24.5 January 17, 2020 2:10pm
--- OUTSIDE RECORDS SUMMARY | 2022-07-31 19:50 | XMS_ITS | Continuity of Care Document ---
Author Name [facility] Address [address] [place] [address] Organization [facility] Address [address] [place] [address] Care Team Providers Care Lodging Facilities Manager Name Role Phone PCP, of Choice Primary Care Physician Unavailab le Allergies, Adverse Reactions, Alerts Allergen Type Severity Reaction Last Updated Verified Status Penicillins Allergy rash September 08, 2017 Y Active Medications No known medications. Problem List Active Problems Medical Problem Onset Date Status Acute mesenteric adenitis Active Undifferentiated abdominal pain Active Procedures Procedure Date Status CT Abd Pel w/o Contrast September 08, 2017 active Relevant Diagnostic Tests and/or Laboratory Data Laboratory [...] have a copy on file here at [facility]? No September 08, 2017 11:17pm Does patient have an Advanced Directive? No September 08, 2017 11:17pm Pt has a Living Will? No September 08 11:17pm Pt has a Power of Manager Of Transportation? No September 08, 2017 11:17pm Chief Complaint and Reason for Visit Encounter Admit Date Chief Complaint Reason for Monique guzmán Departed Emergency September 08, 2017 10:37pm STOMACH PAIN Hospital Discharge Instructions Additional Discharge Instructions Your bebe chawla blood cell count was normal. CAT scan [...] Date Discharge/Departure Date Attending Provider Departed Emergency [facility] Emergency Department September 08, 2017 10:37pm September 09, 2017 1:37am Functional Status No known functional status. Immunizations No known immunizations. Payers Payer Name Policy Type Covered Democrat Covered Democrat Id Relationship Subscriber Subscriber Id SELF PAY [...]
--- OUTSIDE RECORDS SUMMARY | 2022-07-31 19:50 | XMS_ITS | Continuity of Care Document ---
Author Name [facility] Address [address] [place] [address] Organization [facility] Address [address] [place] [address] Care Team Providers Care Supervisor Pumping Name Role Phone PCP, of Choice Primary [...] have a copy on file here at [facility]? No September 08, 2017 11:17pm Does patient have an Advanced Directive? No September 08, 2017 11:17pm Pt has a Living Will? No September 08 11:17pm Pt has a Power of Timber Treatment Plant Operator? No September 08, 2017 11:17pm Chief Complaint [...] Date Discharge/Departure Date Attending Provider Departed Emergency [facility] Emergency Department September 08, 2017 10:37pm September 09, 2017 1:37am Functional Status No known functional status. Immunizations No known immunizations. Payers Payer Name Policy Type Covered Libertarian Covered Libertarian Id Relationship Subscriber Subscriber Id FINANCIAL ASSISTANCE [...]
--- NOTE | 2022-07-31 19:55 | DI.VRAD_ITS ---
PROCEDURE INFORMATION: Exam: CTA Chest With Contrast CTA Abdomen and Pelvis With Contrast Exam date and time: 07/31/2022 7:21 PM Age: 21 years old Clinical indication: Patient HX: S/P syncopal episode, fall, R/O dissection. Occurred during lifting weights TECHNIQUE: Imaging protocol: Computed tomographic angiography of the chest with contrast. Computed tomographic angiography of the abdomen and pelvis with contrast. 3D rendering (Not supervised by radiologist): MIP and/or 3D reconstructed images were created by the technologist. Radiation optimization: All CT scans at this facility use at least one of these dose optimization techniques: automated exposure control; mA and/or kV adjustment per patient size (includes targeted exams where dose is matched to clinical indication); or iterative reconstruction. Contrast material: OMNIPAQUE 350; Contrast volume: 100 ml; Contrast route: INTRAVENOUS (IV); COMPARISON: CT BRAIN NECK CTA 07/31/2022 6:56 PM FINDINGS: VASCULATURE: Pulmonary arteries: Normal. No pulmonary emboli. Aorta: No aortic aneurysm. No aortic dissection. Celiac trunk and mesenteric arteries: No occlusion or significant stenosis. Renal arteries: No occlusion or significant stenosis. Right iliac arteries: No occlusion or significant stenosis. Left iliac arteries: No occlusion or significant stenosis. CHEST: Lungs: Unremarkable. No consolidation. No masses. Pleural spaces: Unremarkable. No pneumothorax. No pleural effusion. Heart: Unremarkable. No cardiomegaly. No pericardial effusion. ABDOMEN AND PELVIS: Liver: No mass. Diffuse fatty infiltration. Gallbladder and bile ducts: Unremarkable. No calcified stones. No ductal dilation. Pancreas: Unremarkable. No mass. No ductal dilation. Spleen: Unremarkable. No splenomegaly. Adrenal glands: Unremarkable. No mass. Kidneys and ureters: Unremarkable. No solid mass. No hydronephrosis. Stomach and bowel: Unremarkable. No obstruction. No mucosal thickening. Appendix: No evidence of appendicitis. Intraperitoneal space: Unremarkable. No free air. No significant fluid collection. Urinary bladder: Unremarkable. No mass. Reproductive: Unremarkable as visualized. Lymph nodes: Unremarkable. No enlarged lymph nodes. Bones/joints: Unremarkable. No acute fracture. Soft tissues: Unremarkable. IMPRESSION: 1. Unremarkable CTA chest, abdomen, and pelvis. 2. Diffuse fatty infiltration of the liver. Dictated and Authenticated by: Antony Grace MD. Ordering:EVANGELISTA Avery MD
--- NOTE | 2022-07-31 20:15 | RT.EKG_ITS ---
APPROVED REPORT Exam: Resting ECG Reason for Exam: syncope Patient Location: E HR:76 bpm ECG Measurements Heart Rate 76 AXIS DC 177 P 7 QRSd 88 QRS 49 QT 362 T 25 QTc 408 Conclusion Sinus rhythm...normal P axis, V-rate 60- 99 ST elev, probable normal early repol pattern...ST elevation, age<55. Sinus. Normal axis. No STEMI. I have reviewed and interpreted ECG and agree with software generated interpretation.
[2022-07-31 20:34] LABS: Bilirubin Negative (Negative); Blood Negative (Negative); Clarity Clear (Clear); Glucose Negative (Negative); Ketones Negative (Negative); Leukocyte Esterase Negative (Negative); Nitrite Negative (Negative); Specific Gravity 1.015 (1.005-1.025)
--- NOTE | 2022-07-31 20:41 | DI.VRAD_ITS ---
PROCEDURE INFORMATION: Exam: CT Thoracic Spine Without Contrast Exam date and time: 07/31/2022 7:21 PM Age: 21 years old Clinical indication: Other: S/P fall, R/O acute FX TECHNIQUE: Imaging protocol: Computed tomography of the thoracic spine without contrast. Radiation optimization: All CT scans at this facility use at least one of these dose optimization techniques: automated exposure control; mA and/or kV adjustment per patient size (includes targeted exams where dose is matched to clinical indication); or iterative reconstruction. COMPARISON: No relevant prior studies available. FINDINGS: Bones/joints: No acute fracture. Normal alignment. No significant disc bulge or herniation. No severe spinal canal stenosis. No significant neural foraminal narrowing. Soft tissues: Unremarkable. IMPRESSION: Unremarkable CT Spine. PROCEDURE INFORMATION: Exam: CT Lumbar Spine Without Contrast Exam date and time: 07/31/2022 7:21 PM Age: 21 years old Clinical indication: Other: S/P fall, R/O acute FX TECHNIQUE: Imaging protocol: Computed tomography of the lumbar spine without contrast. Radiation optimization: All CT scans at this facility use at least one of these dose optimization techniques: automated exposure control; mA and/or kV adjustment per patient size (includes targeted exams where dose is matched to clinical indication); or iterative reconstruction. COMPARISON: No relevant prior studies available. FINDINGS: Bones/joints: No acute fracture. Normal alignment. No significant disc bulge or herniation. No severe spinal canal stenosis. No significant neural foraminal narrowing. Soft tissues: Unremarkable. IMPRESSION: No acute findings. Dictated and Authenticated by: Antony Grace MD. Ordering:EVANGELISTA Avery MD
[2022-07-31 20:46] VITALS: BP 140/80; PULSE 89; RESP 16; TEMP 36.6; O2SAT 98
[2022-07-31 20:46] LABS: *AMPHETAMINES SCREEN URINE Negative (Negative); *BARBITURATES SCREEN URINE Negative (Negative); *BENZODIAZEPINES SCREEN URINE Negative (Negative); Cannabinoids THC Negative (Negative); Cocaine Screen,Urine Negative (Negative); METHADONE URINE SCREEN Negative (Negative); OPIATES URINE SCREEN Negative (Negative)
[2022-07-31 20:48] LABS: Tricyclic Antidepressants Negative (Negative)
== END 2022-07-31 20:47 | disposition home or self-care (01) ==
PROVIDERS: Emergency Provider Physician Assistant
DX: R55 Syncope and collapse (principal); J45.909 Unspecified asthma, uncomplicated
CPT/HCPCS: 36415; 70496; 70498; 71275; 80053; 80307; 83690; 93005; 96360; 96361; 99285; 74174; 81003; 83735; 84484; 85025; 93010; 99284; J3490